=== PATIENT | male | born 1970 | race Caucasian/White ===

== ENCOUNTER 2017-02-25 21:00 | Inpatient (IN) | payer OTHER ==
[~2017-02-25] VITALS: Ht 185.4 cm; Wt 78.5 kg
--- NOTE | ~2017-02-25 | CO ---
Unit #: [id number] #: [id number] Patient: WILI BLACK [id number] [place] [address] [id number] MR#: [id number] NAME: WILI BLACK ROOM: 30 Age: 46 Sex: M Admission Date: 02/26/2017 : 1970 Attending Physician: Julio Cesar Lopez M.D. Primary Care Physician: Generic Doctor Not In System Consultation Date: 02/27/2017 CONSULTATION REPORT SUBJECTIVE Wili is a 46-year-old with poor dental hygiene. He complains of tooth pain along the upper molar region. He denies any increased temperatures. He has not seen a dentist in years. OBJECTIVE GENERAL: Alert, well nourished, in no apparent distress. VITAL SIGNS: Blood pressure 130/70, heart rate 80, respirations 16, temperature 98.6. HEENT: Normocephalic. No abscess is noted, although he has a significant tenderness along the left upper molar region. Very poor dental hygiene noted. ASSESSMENT Tooth pain. PLAN Continue Hurricaine gel. Add amoxicillin 500 mg one p.o. t.i.d. x7 days. Dictated by... Tiffanie Singh PLorneALorne-C. for Josy Walker/bhavana TD: 03/01/2017 00:47 JOB #: [id number] CONSULTATION REPORT Page 1 of 1 X Tiffanie Singh CONSULTATION REPORT
--- NOTE | ~2017-02-25 | PN ---
Unit #: [id number] #: [id number] Patient: MARCY BLACK [id number] [facility] [address] [place] [address] [id number] MR#: [id number] NAME: MARCY BLACK ROOM: 30 Age: 46 Sex: M Admission Date: 02/26/2017 : 1970 Attending Physician: Julio Cesar Lopez M.D. Admitting Physician: Julio Cesar Lopez M.D. Primary Care Physician: Ethel Doctor Not In System [facility] PROGRESS NOTES DATE 02/28/2017 SUBJECTIVE Mr. Black is a 46-year-old single male, who was seen today and chart was reviewed, and the case was discussed with the staff. He has been anxious, withdrawn, and rather seclusive to himself. Meanwhile, he reports some persistent depressive symptoms. He has been taking medications and tolerating them fairly well with no reported side effects. MENTAL STATUS EXAMINATION Middle-aged male, who was casually dressed with fair personal hygiene, appears to be in no acute distress or discomfort. He was awake and alert on interaction with intact orientation. His mood was anxious with a congruent affect. His speech was slow and restricted in content. He denies any suicidal or homicidal ideations. The patient also denies any auditory or visual hallucinations. His insight and judgment remain slightly impaired. TREATMENT PLAN 1. We will continue him on his current medications and treatment protocol. We will monitor his response to the medications and make further adjustments as needed. 2. We will continue to follow up. Dictated by... Josy Mckeon/bhavana TD: 02/28/2017 08:36 JOB #: [id number] Unit #: [id number] #: [id number] Patient: MARCY BLACK [facility] PROGRESS NOTES Page 1 of 1 X Julio Cesar Lopez MD PROGRESS NOTE
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
--- NOTE | ~2017-02-25 | PN ---
Unit #: [id number] #: [id number] Patient: MARCY BLACK [id number] [facility] [address] [place] [address] [id number] MR#: [id number] NAME: MARCY BLACK ROOM: [facility] Age: 46 Sex: M Admission Date: 02/26/2017 : 1970 Attending Physician: Julio Cesar Lopez M.D. Admitting Physician: Julio Cesar Lopez M.D. Primary Care Physician: Ethel Doctor Not In System [facility] PROGRESS NOTES DATE February 27, 2017 DISCUSSION Mr. Black is a 46-year-old male, with mood disorder, who was seen today and chart was reviewed and the case was discussed with the staff. He has been anxious, withdrawn, and seclusive to himself. Meanwhile, he has been cooperative with the treatment recommendations and he has been taking the medications, and tolerating them fairly well with no reported side effects. MENTAL STATUS EXAMINATION Middle-aged male, who was casually dressed with fair personal hygiene and appears to be in no acute distress or discomfort. He was awake and alert on interaction with intact orientation. His mood is anxious with a congruent affect. His speech is slow and goal-directed. He denies any suicidal or homicidal ideations. His insight and judgment remain slightly impaired. TREATMENT PLAN 1. We will continue him on his current medications and treatment protocol, and will monitor his response to the medications, and make further adjustments as needed. 2. We will continue to followup. Dictated by... Josy Mckeon/rashid TD: 02/28/2017 05:20 JOB #: [id number] Unit #: [id number] #: [id number] Patient: MARCY BLACK PROGRESS NOTES Page 1 of 1 X Julio Cesar Lopez MD PROGRESS NOTE
--- NOTE | ~2017-02-25 | PN ---
Unit #: [id number] #: [id number] Patient: WILI BLACK [id number] [facility] [address] [place] [address] [id number] MR#: [id number] NAME: WILI BLACK ROOM: 30 Age: 46 Sex: M Admission Date: 02/26/2017 : 1970 Attending Physician: Julio Cesar Lopez M.D. Admitting Physician: Julio Cesar Lopez M.D. Primary Care Physician: Ethel Doctor Not In System [facility] PROGRESS NOTES DATE 03/01/2017 DISCUSSION Mr. Wili Black is a 46-year-old male who was seen today and chart was reviewed and case was discussed with the staff. He has been anxious, withdrawn and rather seclusive to himself. Meanwhile, he has been cooperative with treatment recommendations and has been taking medications and tolerating them fairly well ____ side effects. MENTAL STATUS EXAMINATION Young male who was casually dressed with fair personal hygiene. He was awake and alert with impaired attention and concentration. Thought processes were disorganized with some looseness of associations, paranoid ideations. His insight and judgement remains significantly impaired. TREATMENT PLAN Will continue on current treatment protocol. Will monitor response. Dictated by... Josy Mckeon/marvin TD: 03/01/2017 18:31 JOB #: [id number] [facility] PROGRESS NOTES Page 1 of 1 X Julio Cesar Lopez MD PROGRESS NOTE
--- NOTE | ~2017-02-25 | DS ---
Unit #: [id number] #: [id number] [facility]: [facility] [id number] [facility] [address] [place] [address] [id number] I MR#: [id number] NAME: MARCY BLACK ROOM: [facility] Age: 46 Sex: M Admission Date: 02/26/2017 : 1970 Discharge Date: 03/03/2017 Attending Physician: Julio Cesar Lopez M.D. Primary Care Physician: Generic Doctor Not In System DISCHARGE SUMMARY IDENTIFYING DATA Mr. Black is a 46-year-old single male who is a resident of [place], [place] and was self-referred to the hospital. HISTORY OF PRESENT ILLNESS Please see initial psychiatric evaluation. PAST PSYCHIATRIC HISTORY Please see initial psychiatric evaluation. PAST MEDICAL HISTORY Please see initial psychiatric evaluation. HOSPITAL COURSE The [facility] and was oriented to the hospital environment. Routine p.r.n. medications were initially and he was started back on his home medications and medications were adjusted and Risperdal was started as a mood stabilizer and antipsychotic and he was closely monitored. He was taking medications regularly and was tolerating fairly well and was able to show a decent therapeutic response with improvement in depression, psychosis and was denying any thoughts of wanting to hurt himself and was not seen to be a danger to self or anyone else and was wanting to go home and was willing to continue treatment on outpatient basis and as such it was decided that he will be discharged. Will continue treatment on outpatient basis. DISCHARGE DIAGNOSES PSYCHIATRIC: 1. Bipolar disorder, most recent episode depressed, recurrent, moderate, with psychosis. 2. Alcohol abuse, moderate. MEDICAL: 1. Hypertension. 2. Diabetes mellitus. 3. Arthritis. STRESSORS: Mild psychosocial stressors. DISCHARGE MEDICATIONS Risperdal 1 mg b.i.d. for bipolar. Unit #: [id number] #: [id number] Patient: MARCY BLACK CONDITION AT DISCHARGE Stable. PROGNOSIS Fair. Dictated by... Julio Cesar Lopez M.D. IAA/marvin TD: 03/04/2017 15:52 JOB #: [id number] DISCHARGE SUMMARY Page 1 of 1 X Julio Cesar Lopez MD DISCHARGE SUMMARY
--- NOTE | ~2017-02-25 | PN ---
Unit #: [id number] #: [id number] Patient: MARCY BLACK [id number] [facility] [address] [place] [address] [id number] I MR#: [id number] NAME: MARCY BLCAK ROOM: [facility] Age: 46 Sex: M Admission Date: 02/26/2017 : 1970 Attending Physician: Julio Cesar Lopez M.D. Admitting Physician: Julio Cesar Lopez M.D. Primary Care Physician: Ethel Doctor Not In System [facility] PROGRESS NOTES DATE OF SERVICE 03/02/2017 DISCUSSION Mr. Black is a 46-year-old male who was seen today. Chart was reviewed and case was discussed with the staff. He has been anxious, withdrawn, and rather seclusive to himself. Meanwhile, he has been cooperative with treatment recommendations and has been taking the medications and tolerating them fairly well with no reported side effects. MENTAL STATUS EXAMINATION Middle-aged male who is casually dressed with fair personal hygiene, appears to be in no acute distress or discomfort. He was awake and alert on interaction with intact orientation. His mood is anxious with congruent affect. Speech is slow and goal-directed. He denies any suicidal or homicidal ideations and also denies any auditory or visual hallucinations. His insight and judgment remain slightly impaired. TREATMENT PLAN 1. We will continue him on his current medications and treatment protocol. We will monitor his response and make further adjustments as needed. 2. We will continue to follow up. Dictated by... Josy Mckeon/sofy TD: 03/02/2017 09:20 JOB #: [id number] Unit #: [id number] #: [id number] Patient: MARCY BLACK [facility] PROGRESS NOTES Page 1 of 1 X Julio Cesar Lopez MD PROGRESS NOTE
[2017-02-27 09:39] LABS: BASOPHIL% 0.2 % (0-2.5); EOSINOPHIL# 0.1 X10e3 (0-0.7); EOSINOPHIL% 1.6 % (0.0-7.0); HEMOGLOBIN 12.7 gm/dL (13.0-16.0); LYMPHOCYTE# 0.9 X10e3 (1.0-3.5); MEAN CELL VOLUME 87.3 FL (83-96); MEAN CORPUSCULAR HEMOGLOBIN 29.2 PG (28-34); MEAN CORPUSCULAR HGB CONC 33.4 g/dL (30-36); MONOCYTE# 0.4 X10e3 (0-1.0); MONOCYTE% 8.8 % (3.0-12.0); NEUTROPHIL# 3.2 X10e3 (1.5-7.1); NEUTROPHIL% 69.4 % (40-75); PLATELET COUNT 234 X10e3 (140-420); RED BLOOD COUNT 4.35 X10e (3.90-5.60); RED CELL DISTRIBUTION WIDTH 14.9 % (11.0-15.5); WHITE BLOOD COUNT 4.6 X10e3 (4.0-10.5)
[2017-02-27 09:43] LABS: DIFF IND NO
[2017-02-27 10:28] LABS: ALBUMIN SERUM 3.2 g/dL (3.5-5.0); BILIRUBIN,TOTAL 0.7 mg/dL (0.2-2.0); BUN/CREATININE RATIO 16.66; CALCIUM SERUM 9.2 mg/dL (8.4-10.2); CREATININE SERUM 0.6 mg/dL (0.6-1.4); GLOM FILT RATE Estimated 122.3 mL/min (>60); POTASSIUM 3.8 mmol/L (3.5-5.1)
[2017-03-01 09:57] LABS: URINE APPEARANCE CLEAR; URINE BILIRUBIN NEG (NEG); URINE BLOOD NEG (NEG); URINE COLOR YELLOW; URINE GLUCOSE >1000 MG/DL (NEG); URINE KETONE NEG (NEG); URINE LEUKOCYTE ESTERASE NEG (NEG); URINE NITRATE NEG (NEG); URINE PROTEIN NEG (NEG); URINE UROBILINOGEN 0.2 MG/DL (NEG)
[2017-03-01 10:59] LABS: AMPHETAMINE NEG (NEG); BARBITURATES NEG (NEG); BENZODIAZEPINES NEG (NEG); COCAINE NEG (NEG); MARIJUANA POS (NEG); OPIATES NEG (NEG); TRICYCLIC ANTIDEPRESSANTS NEG (NEG); U METHADONE NEG (NEG)
== END 2017-03-03 09:53 | disposition home or self-care (01) | DRG 885 ==
LOC: P1E 02-26 01:26 → P1S 02-27 18:07
PROVIDERS: Psychiatry & Neurology Psychiatry
DX: F31.5 Bipolar disorder, current episode depressed, severe, with psychotic features (principal); R45.851 Suicidal ideations; R45.850 Homicidal ideations; F10.20 Alcohol dependence, uncomplicated; E11.9 Type 2 diabetes mellitus without complications; I10 Essential (primary) hypertension; M19.90 Unspecified osteoarthritis, unspecified site; Z59.0 Homelessness; F17.200 Nicotine dependence, unspecified, uncomplicated; K08.89 Other specified disorders of teeth and supporting structures
CPT/HCPCS: 80053; 80307; 81003; 82947; 85025